=== PATIENT | male | born 1995 | race Caucasian/White ===

== ENCOUNTER 2017-08-20 20:23 | Emergency (ER) | payer OTHER, SELFPAY ==
[2017-08-20 20:23] VITALS: BP 139/74; PULSE 137; RESP 20; TEMP 36.7; O2SAT 98; BMI 18.6
--- NOTE | 2017-08-20 20:58 | CT_ITS ---
STUDY: CT BRAIN WITHOUT CONTRAST REASON FOR EXAM: Male, 21 years old. Syncope RADIATION DOSAGE (If Supplied By Facility): CTDIvol = ( 44.99 ) mGy, DLP = ( 812.98 ) mGycm TECHNIQUE: Transaxial CT imaging of the brain was performed without administration of intravenous contrast material. Individualized dose optimization techniques were used for this CT. COMPARISON: None. FINDINGS: Normal soft tissue structures. Normal calvarium. Normal size ventricles and extra-axial spaces for the patient's age. Normal white matter tracts of the cerebral hemispheres. Normal basal ganglia and thalami. Normal brainstem. Normal cerebellum. There is no intracranial hemorrhage. There are no findings of an acute ischemic infarction. Left maxillary sinus disease. CT/Brain/Head without Contrast IMPRESSION: No CT evidence of acute brain pathology. Electronically Signed: Ambrosio Valencia MD at 22:11 EST Tel , Service support ,
--- NOTE | 2017-08-20 20:58 | EKG12_ITS ---
Test Reason : FAINTED/TACHYCARDIC Blood Pressure : / mmHG Vent. Rate : 126 BPM Atrial Rate : 126 BPM P-R Int : 170 ms QRS Dur : 094 ms QT Int : 298 ms P-R-T Axes : 076 096 055 degrees QTc Int : 431 ms Sinus tachycardia Nonspecific ST abnormality Abnormal ECG Confirmed by LYNN DAY ([id number]), video editor DUSTIN CARTER ([id number]) on 08/24/2017 1:44:06 PM Referred By: JALYN Confirmed By:LYNN DAY
--- NOTE | 2017-08-20 21:01 | ED.VISSUMM ---
- ER Visit Summary Date of Service: 08/20/17 Chief Complaint: Passed out History of Present Illness: The patient is a 21 M who passed out today just prior to arrival. The patient thinks he drank too much milk earlier today and he got an upset stomach. He took a nap. When he woke up, he showered. The water was cold and he felt nauseated. He threw up. He had tunnel vision. He subsequently passed out and woke up spontaneously. He is not sure if he hit his head, but he thinks he did. He still feels like he might pass out. He has some numbness in his hands. 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 Denies any other medical problems. Denies any alcohol use today. Denies any drug use. Denies smoking. Has any history of heart problems, lung problems, clots, thyroid problems. His neck pain or injury. Denies back pain. He had a recent upper respiratory infection and is taking cold medicine. Physical Examination: Patient is tachycardic in the 120s-140s. Appears to be sinus on the monitor. Afebrile. Vitals otherwise unremarkable. Head and neck atraumatic. Nontender. Cranial nerves grossly intact. Heart tachycardic but regular. Lungs clear. Extremities atraumatic. No focal or lateralizing neurologic abnormalities. Skin is normal in color. Test Results: We will check CT head, chest x-ray, EKG, labs. Will also check orthostatics. Emergency Department Course and Treatment: Patient was placed on a monitor. Orthostatics were positive. His blood pressure dropped by 26 points, systolic. His heart rate increased by 24 points. He received 2 L of fluids and was monitored. CT head showed no acute abnormalities. Chest x-ray unremarkable. EKG showed sinus rhythm at a rate of 126 with nonspecific findings including ST-T wave changes. CBC unremarkable. Glucose 109 and BUN 21. Troponin normal. TSH normal. Patient was reevaluated after fluids. His repeat orthostatics showed a stable blood pressure, but his heart rate increased by 36. He did have some continued tachycardia but mainly stayed in the 110s-120s. On reevaluation, he felt tired but had no new or worsening symptoms. He was able to stand up without feeling dizzy. He had no new or worsening symptoms like chest pain, shortness of breath, worsening abdominal pain, or any other symptoms. We continued to monitor the patient. His blood pressure stayed around 100/50. His heart rate again stayed in the 110-120 range. He felt tired but had no further complaints. The patient's vital signs were concerning, but his improvement in symptoms and his workup findings were otherwise reassuring. I was concerned about his continued tachycardia. Is also concern for POTS. I spoke with Dr. Gaxiola about the above findings. He felt that the patient was appropriate for outpatient follow-up with him. No further recommendations. Patient voiced understanding and agreement with this. I discussed risks with the patient. He will be careful with postural changes. Stay hydrated. Make sure he is eating healthy diet. He may eat salty foods. Avoid any sedating medications like cold medication. Avoid any strenuous activity until he is evaluated by cardiology. He should return as soon as possible or call 911 for chest pain, shortness of breath, increasing abdominal pain, headaches, or any other concerns. Treatment Plan: As above Disposition: Discharged Impression: 1. Syncope 2. Orthostatic tachycardia This note was generated with [employer] dictation software. It may contain incorrect words, spelling, and punctuation that were not noted in review of the chart prior to signing ED Disposition - Plan for ED Patient: Chief Complaint: Syncope Instructions: ED Hypotension Orthostatic Referrals: Elian Gaxiola MD [STAFF PHYSICIAN] -
--- NOTE | 2017-08-20 21:05 | RAD_ITS ---
STUDY: X-RAY CHEST REASON FOR EXAM: Male, 21 years old. Syncope TECHNIQUE: Single frontal view of the chest. COMPARISON: None. FINDINGS: The lungs are clear and expanded. There is no demonstrated pleural abnormality. Normal size heart. Normal mediastinum and cecilio. Normal visualized pulmonary arteries. Normal visualized aortic arch and descending thoracic aorta. Normal visualized thoracic spine. Normal visualized ribs, clavicles, and shoulders. There is no demonstrated abnormality of the visualized soft tissue structures of the upper abdomen. RAD/Chest 1 View (Portable) IMPRESSION: Normal x-ray examination of the chest. Electronically Signed: Ambrosio Valencia MD at 21:28 EST Tel , Service support ,
[2017-08-20 21:21] LABS: Absolute Lymphocyte Count 0.38 X10^3/ul (0.83-4.51); Absolute Neutrophil Count 6.1 X10^3/uL (2.0-7.7); Basophil# 0.01 X10^3/uL; Basophil% 0.1 % (0-1); Eosinophils% 1.4 % (0-5); Hematocrit 44.2 % (40-54); Hemoglobin 15.1 g/dl (13.0-16.5); Lymphocyte # 0.38 X10^3/ul (4.0); Lymphocyte % 5.5 % (19-41); Mean Corp Hgb Conc 34.2 g/gl (32-36); Mean Corpuscular Hgb 28.8 pg (27.0-32.0); Mean Corpuscular Volume 84.2 fL (80-94); Monocyte# 0.38 X10^3/uL; Monocyte% 5.5 % (0-10); Neutrophil # 6.06 X10^3/uL (2.7-7.7); Neutrophil % 87.4 % (47-70); Platelet Count 171 K/mm3 (150-450); RBC Distribution Width CV 13.3 % (11.6-14.6); Red Blood Count 5.25 M/mm3 (4.6-6.2); White Blood Count 6.9 K/mm3 (4.4-11.0)
[2017-08-20 21:23] LABS: Differential Indicated SCAN CRITERIA MET; POSITIVE COUNT NO; POSITIVE DIFFERENTIAL YES; POSITIVE MORPHOLOGY NO
--- NOTE | 2017-08-20 21:23 | NURSING ---
NO OLD EKG'S IN MUSE
[2017-08-20] MEDS: 0.9% Normal Saline 1,000 ML 1000 ML IV (21:25)
[2017-08-20 21:29] VITALS: BP 107/54; BP 119/66; BP 93/52; PULSE 119; PULSE 121; PULSE 143
[2017-08-20 21:39] LABS: Platelet Estimate ADEQUATE (ADEQ); Red Cell Morphology NORM C+C NORMAL (NORM C&C)
[2017-08-20 21:50] LABS: Anion Gap 12 (5-15); BUN 21 mg/dL (7-18); Calcium,Total 8.8 mg/dL (8.5-10.1); Chloride 104 mmol/L (98-107); Creatinine, Serum 1.05 mg/dL (0.70-1.30); EST Glomerular Filtration Rate 96 mL/min (>60); Est Glom Filt Rate - Afr Amer 116 mL/min (>60); Estimated Creatinine Clearance 99.39 ml/min; Glucose 109 mg/dL (74-106); Potassium 3.6 mmol/L (3.5-5.1); Sodium Level 141 mmol/L (136-145); Thyroid Stim Hormone (TSH) 0.96 uIU/mL (0.358-3.74)
[2017-08-20 22:12] VITALS: BP 105/62; PULSE 112; RESP 16; O2SAT 97
[2017-08-20] MEDS: 0.9% Normal Saline 1,000 ML 999 ML IV (22:12)
[2017-08-20 23:00] VITALS: BP 95/50; PULSE 113; RESP 16; O2SAT 97
[2017-08-20 23:08] VITALS: BP 102/48; BP 107/67; BP 94/44; PULSE 112; PULSE 121; PULSE 148
[2017-08-21] VITALS: BP 99/49; PULSE 118; RESP 21; O2SAT 97
[2017-08-21 00:17] VITALS: BP 100/51; PULSE 113; RESP 18; O2SAT 100
--- NOTE | 2017-08-21 00:17 | ED.DEP ---
ED Disposition - Plan for ED Patient: Chief Complaint: Syncope Instructions: ED Hypotension Orthostatic Referrals: Elian Gaxiola MD [STAFF PHYSICIAN] -
--- NOTE | 2017-08-21 00:44 | ED.RN ---
PT EDUCATED ON ORTHOSTATIC HYPOTENSION, CAUTIONED ON CHANGING POSITIONS SLOWLY, GAVE SEVERAL CANS CONNOR RENETTA, SPRITE AND GATOR AID TO DRINK DURING NIGHT. PT COW STUDENT, NO DRINKS IN DORM. DISCUSSED APPROPRIATE DIET FOR NEXT SEVERAL DAYS, ADVISED NOT TO TAKE ANY MORE COLD MEDICINE. PT ASKED IF HE WAS SAFE TO DRIVE TO [place] TOMORROW, THIS RN ADVISED AGAINST PT DRIVING AT ALL UNTIL CLEARED BY INVESTMENT SALES ASSISTANT. INFORMATION GIVEN TO SEE DR MARTINEZ TOMORROW (08/21/17), PT STATES HE WILL FOLLOW THROUGH WITH APPT. PT AMBULATED AROUND ROOM, OUT TO LOBBY, STATES I FEEL TIRED BUT OK. [facility] HERE TO TAKE PT BACK TO [facility].
== END 2017-08-21 00:47 | disposition home or self-care (01) ==
LOC: ED 21:04
PROVIDERS: Emergency Provider Emergency Medicine
DX: R55 Syncope and collapse (principal); R00.0 Tachycardia, unspecified; R11.2 Nausea with vomiting, unspecified; R20.0 Anesthesia of skin
CPT/HCPCS: 70450; 71045; 80048; 84443; 84484; 85025; 93005; 96360; 96361; 99285; J7030; A4216